=== PATIENT | female | born 1930 | race Caucasian/White ===

== ENCOUNTER 2016-05-15 13:48 | Outpatient (CLI) | payer MEDICARE, OTHER ==
--- NOTE | 2016-05-18 09:05 | OP Clinic Progress Note ---
REFERRING PHYSICIAN: Dr. Halley Sandhu REASON FOR VISIT: Katarina Carter returns for follow up of her seropositive rheumatoid arthritis of multiple joints. She is doing well. She is not having any joint swelling, warmth, tenderness, morning stiffness or pain. She has carpal tunnel in her right hand. She did increase her prednisone for a month due to some worsening symptoms. She continues to wear her brace at night and is not having many symptoms. 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 She has had no flares and continues on allopurinol. PAST MEDICAL HISTORY: 1. Seropositive rheumatoid arthritis of multiple joints. 2. 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 3. Osteoporosis. 4. Asthma. 5. Cataracts. 6. Bilateral knee replacements. 7. Hysterectomy. PRESENT MEDICATIONS: 1. Calcium plus D. 2. Plaquenil 200 mg once a day. 3. Diltiazem 120 mg daily. 4. Allopurinol 100 mg daily. ALLERGIES: She has no known drug allergies. REVIEW OF SYSTEMS: No fevers, chills, sweats, chest pain, shortness of breath, cough, wheezing, nausea, vomiting, or diarrhea. She also suffers from osteoporosis and she has not been taking her Fosamax. PHYSICAL EXAMINATION: VITAL SIGNS: Weight: 133. T: 97.1, R: 12, heart rate of 71, BP: 140/80. HEENT: Grossly unremarkable. LUNGS: Clear. HEART: Regular rate and rhythm. ABDOMEN: Soft. VASCULAR: No edema or cyanosis. PERIPHERAL JOINTS: No synovitis at the DIPs, PIPs, MCPs, wrists, elbows, shoulders, hips, knees, ankles, and feet. She does have some hard bony swelling of the DIPs. There is some CMC squaring. Tmr Teacher strength is intact. Gait is intact. IMPRESSION: 1. Seropositive rheumatoid arthritis of multiple joints. Doing well on Plaquenil alone. 2. Right-sided carpal tunnel, improved. 3. Osteoporosis. I have encouraged her to take her Fosamax 70 mg weekly as prescribed. 4. Hypertension. She is normotensive. PLAN: I will see her back in 6 months. Thank you very much. cc: Dr. Halley Sandhu [facility]
== END 2016-05-15 13:50 ==
LOC: RHEU 13:48
PROVIDERS: ATTEND Internal Medicine
DX: M10.9 Gout, unspecified (principal); M81.0 Age-related osteoporosis without current pathological fracture
CPT/HCPCS: 99213

== ENCOUNTER 2016-11-13 09:52 | Outpatient (CLI) | payer MEDICARE, OTHER ==
--- NOTE | 2016-11-16 10:18 | OP Clinic Progress Note ---
REASON FOR VISIT: Katarina Carter returns for follow up on seropositive rheumatoid arthritis. She is doing well with no significant joint swelling, warmth, tenderness, morning stiffness, or pain. No new deformities. She continues to have symptoms of carpal tunnel in the right hand occasionally and it is mainly at night. 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 PAST MEDICAL HISTORY: As above, as well as: 1. Osteoporosis. 2. Asthma. 3. Cataracts. 4. Bilateral knee replacements. 5. Hysterectomy. PRESENT MEDICATIONS: 1. Plaquenil 200 mg once a day. 2. Diltiazem 120 mg daily. 3. Allopurinol 100 mg daily. 4. Fosamax 70 mg once a week. 5. Calcium plus D. ALLERGIES: She has no known drug allergies. REVIEW OF SYSTEMS: No fevers, chills, sweats, chest pain, shortness of breath, cough, wheezing, nausea, vomiting, or diarrhea. PHYSICAL EXAMINATION: GENERAL: On exam, she looks well. VITAL SIGNS: Vital signs are stable. HEENT: Sclerae are anicteric. Conjunctivae are pink. No stomatitis or glossitis. LUNGS: Clear. HEART: Regular rhythm. ABDOMEN: Soft. VASCULAR: No edema or cyanosis. PERIPHERAL JOINTS: No synovitis. Tinel's testing on the right was negative. IMPRESSION: 1. Seropositive rheumatid arthritis. 2. Carpal tunnel syndrome. 3. Tophaceous gout. 4. Osteoporosis. PLAN: 1. We will check a uric acid level today, as well as a sedimentation rate. I will give her a call with the results when I can obtain them. 2. I will see her back in 6 months. Thank you very much. Best regards, cc: Dr. Halley ANDRES
== END 2016-11-13 09:53 ==
LOC: RHEU 09:52
PROVIDERS: ATTEND Internal Medicine
DX: M05.9 Rheumatoid arthritis with rheumatoid factor, unspecified (principal); G56.00 Carpal tunnel syndrome, unspecified upper limb; M10.9 Gout, unspecified; M81.0 Age-related osteoporosis without current pathological fracture
CPT/HCPCS: G0463

== ENCOUNTER 2017-05-04 12:16 | Outpatient (CLI) | payer MEDICARE, OTHER | END 2017-05-04 12:17 | LOC: LAB 12:16 | PROVIDERS: ATTEND Internal Medicine | DX: M05.79 Rheumatoid arthritis with rheumatoid factor of multiple sites without organ or systems involvement (principal) | CPT/HCPCS: 36415; 84550; 85651 ==

== ENCOUNTER 2017-07-09 10:28 | Outpatient (CLI) | payer MEDICARE, OTHER ==
--- NOTE | 2017-07-14 13:47 | OP Clinic Progress Note ---
REASON FOR VISIT: Katarina Carter returns for follow up of seropositive rheumatoid arthritis of multiple sites. This is a lady I first met in May of 2014 and she has done quite well on Plaquenil and prednisone. She presented with wrist pain and evidence of carpal tunnel syndrome. Presently, for the past few months, she has had worsening pain in the right hand with numbness and tingling and it is keeping her up all night. The other issue is osteoporosis. She had a T-score of minus 2.7 back in 2014. I had instituted Fosamax which she took for a while with no great difficulty. She apparently has stopped it and she does not recall when. She also has a history of tophaceous gout and has done well on Allopurinol with no recurrence of her symptoms. Since I last saw her, she fell and had a pelvic fracture. PAST MEDICAL HISTORY: 1. Osteoporosis. 2. Asthma. 3. Cataracts. 4. Bilateral knee replacements. 5. Hysterectomy. PRESENT MEDICATIONS: 1. Plaquenil 200 mg once a day. 2. Diltiazem 120 mg daily. 3. Allopurinol 100 mg daily. 4. Calcium plus D. ALLERGIES: She has no known drug allergies. REVIEW OF SYSTEMS: Rest of systems reviewed, no fevers, chills, sweats, chest pain, shortness of breath, cough, wheezing, nausea, vomiting, or diarrhea. PHYSICAL EXAMINATION: VITAL SIGNS: Weight: 125 pounds. Height: 5 feet 3 inches. T: 96.6, R: 20, heart rate 63, BP: 150/75. HEENT: Sclerae are anicteric. Conjunctivae are pink. No stomatitis or glossitis. LUNGS: Clear bilaterally with no crackles or wheezing. HEART: Regular rhythm. ABDOMEN: Soft and nontender. VASCULAR: Shows no edema or cyanosis. PERIPHERAL JOINTS: No synovitis at the DIPs, PIPs, MCPs, wrists, elbows, shoulders, hips, knees, ankles, and feet. She does have positive Tinel on the right with some tenderness at the right wrist and a positive Phalen sign. IMPRESSION: 1. Seropositive rheumatoid arthritis, worse. 2. Carpal tunnel syndrome, moderate to severe, right wrist. 3. Osteoporosis with history of pelvic fracture. PLAN: 1. I am bumping the patient's prednisone up to 5 mg twice a day. 2. We will check her labs for disease activity. 3. I would like to see her back in 4 weeks. At that time, we will also discuss the possibility of methotrexate depending on her response, as well as repeat a bone density study, and resumption of the patient's Fosamax, which I would like for her to take for at least another 2 years. Thank you very much. cc: Dr. Halley ANDRES
== END 2017-07-09 13:24 ==
LOC: RHEU 10:28
PROVIDERS: ATTEND Internal Medicine
DX: M06.9 Rheumatoid arthritis, unspecified (principal); G56.01 Carpal tunnel syndrome, right upper limb; M81.0 Age-related osteoporosis without current pathological fracture; Z87.81 Personal history of (healed) traumatic fracture
CPT/HCPCS: 99214; G0463

== ENCOUNTER 2017-08-13 12:42 | Outpatient (CLI) | payer MEDICARE, OTHER ==
--- NOTE | 2017-08-16 15:38 | OP Clinic Progress Note ---
REASON FOR VISIT: Katarina Carter returns for follow up of seropositive rheumatoid arthritis of multiple sites. She is doing well on prednisone 5 mg twice a day. She has no wrist pain. No swelling. No morning stiffness and the numbness and tingling in her hands has resolved. She has had no gout attacks. Note, her last uric acid was 5.7 on May 04 and her sedimentation rate was 8 on May 04. PAST MEDICAL HISTORY: 1. Osteoporosis. 2. Asthma. 3. Cataracts. 4. Bilateral knee replacements. 5. Hysterectomy. 6. Pelvic fracture. PRESENT MEDICATIONS: 1. Plaquenil 200 mg once a day. 2. Prednisone 5 mg twice a day. 3. Diltiazem 120 mg daily. 4. Allopurinol 100 mg daily. 5. Calcium plus D. ALLERGIES: She has no known drug allergies. REVIEW OF SYSTEMS: Rest of the systems reviewed, no fevers, chills, sweats, chest pain, shortness of breath, cough, wheezing, nausea, vomiting, or diarrhea and no falls. PHYSICAL EXAMINATION: VITAL SIGNS: Height: 5 feet 3 inches. Weight: 126. T: 97.3, R: 20, heart rate 60, BP: 160/80. HEENT: Sclerae are anicteric. Conjunctivae are pink. No stomatitis or glossitis. LUNGS: Clear. HEART: Regular rate and rhythm. ABDOMEN: Soft and nontender. VASCULAR: No edema or cyanosis. PERIPHERAL JOINTS: Hard bony swelling at the DIPs and PIPs, otherwise, no synovitis at the MCPs and wrists. Phalen testing is negative. Elbows, shoulders, hips, knees, ankles, and feet are unremarkable. Thoracic kyphosis is noted. No spinal tenderness. IMPRESSION: 1. Seropositive rheumatoid arthritis, steroid dependent. 2. Carpal tunnel syndrome secondary to above, resolved. 3. Osteoporosis. PLAN: 1. I am starting the patient on methotrexate 3 tablets weekly with folic acid supplementation. 2. We will repeat a bone density test today. Note: She had not been taking her Fosamax. Thank you very much. cc: Dr. Halley ANDRES
== END 2017-08-13 14:54 ==
LOC: RHEU 12:42
PROVIDERS: ATTEND Internal Medicine
DX: M06.9 Rheumatoid arthritis, unspecified (principal); G56.00 Carpal tunnel syndrome, unspecified upper limb; M81.0 Age-related osteoporosis without current pathological fracture
CPT/HCPCS: 99214; G0463

== ENCOUNTER 2017-08-18 10:28 | Outpatient (CLI) | payer MEDICARE, OTHER | END 2017-08-18 10:30 | LOC: RAD 10:28 | PROVIDERS: ATTEND Internal Medicine | DX: M81.0 Age-related osteoporosis without current pathological fracture (principal) | CPT/HCPCS: 77080 ==

== ENCOUNTER 2017-09-10 13:26 | Outpatient (CLI) | payer MEDICARE, OTHER ==
--- NOTE | 2017-09-13 13:29 | OP Clinic Progress Note ---
HISTORY OF PRESENT ILLNESS: Katarina Carter returns for follow up on her seropositive rheumatoid arthritis. She has been living on prednisone 5 mg twice a day, so we instituted methotrexate 3 tablets weekly at her last visit. She has tolerated it well. She has had no fevers, chills, sweats, mouth sores, chest pain, shortness of breath, cough, wheezing, nausea, vomiting, diarrhea, or skin rashes. PAST MEDICAL HISTORY: 1. Osteoporosis, status post pelvic fracture. 2. Asthma. 3. Cataracts. 4. Bilateral knee replacements. 5. Hysterectomy. PRESENT MEDICATIONS: 1. Plaquenil 200 mg once a day. 2. Prednisone 5 mg twice a day. 3. Methotrexate 3 tablets weekly. 4. Folic acid 1 mg daily. 5. Diltiazem 120 mg daily. 6. Allopurinol 100 mg daily. 7. Calcium plus D. ALLERGIES: She has no known drug allergies. REVIEW OF SYSTEMS: Per HPI. PHYSICAL EXAMINATION: VITAL SIGNS: Height: 5 feet 3 inches. Weight: 127. T: 97.8, R: 18, heart rate 68, BP: 150/90. HEENT: Sclerae are anicteric. Conjunctivae are pink. No stomatitis or glossitis. LUNGS: Clear bilaterally with no crackles or wheezing. HEART: Regular rate and rhythm. ABDOMEN: Soft and nontender. VASCULAR: No edema or cyanosis. PERIPHERAL JOINTS: No synovitis at the DIPs, PIPs, MCPs, wrists, elbows, shoulders, hips, knees, ankles, and feet. DIAGNOSTIC STUDIES: I reviewed her bone density study. Although she averages out at minus 2.2, right femoral neck T-score was minus 2.8. She has a history of a pelvic fracture. IMPRESSION: 1. Seropositive rheumatoid arthritis, active. 2. Osteoporosis. PLAN: 1. She is going to try to taper off her prednisone. 2. I am going to bump up her methotrexate to 6 tablets weekly. 3. Continue folic acid. 4. At her next visit, I will institute Fosamax 70 mg weekly. 5. We discussed fall precautions. Thank you very much. Best regards, cc: Dr. Halley Sandhu [facility]
== END 2017-09-10 14:10 ==
LOC: RHEU 13:26
PROVIDERS: ATTEND Internal Medicine
DX: M05.9 Rheumatoid arthritis with rheumatoid factor, unspecified (principal); M81.0 Age-related osteoporosis without current pathological fracture
CPT/HCPCS: 99214; G0463

== ENCOUNTER 2017-09-15 10:16 | Outpatient (CLI) | payer MEDICARE, OTHER ==
[2017-09-15 10:44] LABS: BASOPHILS % 0.3 (0.0-1.5); EOSINOPHILS % 3.2 % (0.0-6.8); MEAN CORPUSCULAR VOLUME 97.7 fl (80.0-100.0); MONOCYTES % 5.5 % (0.0-11.0); NEUTROPHILS # 3.8 # k/uL (1.4-7.7)
[2017-09-15 11:10] LABS: eGFR (African) > 60; eGFR (Non-African) > 60
== END 2017-09-15 13:18 ==
LOC: LAB 10:16
PROVIDERS: ATTEND Internal Medicine
DX: M05.79 Rheumatoid arthritis with rheumatoid factor of multiple sites without organ or systems involvement (principal); Z79.899 Other long term (current) drug therapy
CPT/HCPCS: 36415; 80053; 85025; 85651

== ENCOUNTER 2017-11-12 11:38 | Outpatient (CLI) | payer MEDICARE, OTHER ==
--- NOTE | 2017-11-15 13:30 | OP Clinic Progress Note ---
REASON FOR VISIT: Katarina Carter returns for follow up of seropositive rheumatoid arthritis of multiple sites. She is doing well from a joint point of view. She is presently having no significant joint swelling, warmth, tenderness, or morning stiffness. She has some pain in her knees with walking, which is attributable to her osteoarthritis. She has also noted that her right hand falls asleep at night at times. Her chief complaint is fatigue. She is now taking multiple naps throughout the day. PAST MEDICAL HISTORY: 1. Seropositive rheumatoid arthritis. 2. Osteoporosis, status post pelvic fracture. 3. Asthma. 4. Cataracts. 5. Bilateral knee replacements. 6. Hysterectomy. PRESENT MEDICATIONS: 1. Plaquenil 200 mg once a day. 2. Prednisone 5 mg once a day. 3. Methotrexate 6 tablets weekly. 4. Folic acid 1 mg daily. 5. Diltiazem 100 mg daily. 6. Allopurinol 100 mg daily. 7. Calcium plus D. ALLERGIES: She has no known drug allergies. REVIEW OF SYSTEMS: She has had no fevers, chills, sweats. No mouth sores but she has a loss of appetite. Things just do not taste good. She has had no chest pain, shortness of breath. No nausea, vomiting, or diarrhea. No dark stools or bloody stools. She has numbness and tingling of her right upper extremity at night. No skin rashes or nodules. PHYSICAL EXAMINATION: VITAL SIGNS: Height: 5 feet 3 inches. Weight: 126 pounds, down 1 pound since her last visit at 127. T: 97.9, R: 20, heart rate 75, BP: 127/69. HEENT: Sclerae are anicteric. Conjunctivae are pink. No stomatitis or glossitis. LUNGS: Clear bilaterally with no crackles or wheezing. HEART: Regular rate and rhythm. ABDOMEN: Soft and nontender. VASCULAR: No edema or cyanosis. PERIPHERAL JOINTS: No synovitis at the DIPs, PIPs, MCPs, wrists, elbows, shoulders, hips, knees, ankles, and feet. She does have a little ulnar deviation at the MCPs and some changes of osteoarthritis at the DIPs and PIPs. LABORATORY: Calcium was slightly elevated at 10.9. We will continue to monitor at her next visit. Her last sedimentation rate was 10. IMPRESSION: 1. Seropositive rheumatoid arthritis, improved. 2. Osteoporosis. 3. Fatigue. 4. For what appears to be carpal tunnel on the right side, I suggested a wrist splint at night. PLAN: 1. We will check her labs for disease activity and drug toxicity prior to her next visit in 2 months. 2. I am instituting Fosamax 70 mg weekly. 3. I made some recommendations on sleep hygiene. Thank you very much. cc: Dr. Halley ANDRES
== END 2017-11-12 12:31 ==
LOC: RHEU 11:38
PROVIDERS: ATTEND Internal Medicine
DX: M05.9 Rheumatoid arthritis with rheumatoid factor, unspecified (principal); M81.0 Age-related osteoporosis without current pathological fracture; R53.83 Other fatigue; R20.2 Paresthesia of skin
CPT/HCPCS: 99214; G0463

== ENCOUNTER 2017-11-25 13:51 | Outpatient (CLI) | payer MEDICARE, OTHER ==
[2017-11-25 14:27] LABS: BASOPHILS % 0.3 (0.0-1.5); EOSINOPHILS % 1.6 % (0.0-6.8); MEAN CORPUSCULAR HEMOGLOBIN 32.5 pg (28.0-34.0); MEAN CORPUSCULAR VOLUME 99.9 fl (80.0-100.0); MONOCYTES % 3.9 % (0.0-11.0); NEUTROPHILS # 5.1 # k/uL (1.4-7.7)
[2017-11-25 14:48] LABS: eGFR (African) > 60; eGFR (Non-African) > 60
== END 2017-11-25 13:52 ==
LOC: LAB 13:51
PROVIDERS: ATTEND Internal Medicine
DX: M05.79 Rheumatoid arthritis with rheumatoid factor of multiple sites without organ or systems involvement (principal)
CPT/HCPCS: 36415; 80053; 85025; 85651; 86140

== ENCOUNTER 2018-01-14 12:16 | Outpatient (CLI) | payer MEDICARE, OTHER ==
--- NOTE | 2018-01-17 10:19 | OP Clinic Progress Note ---
REASON FOR VISIT: Katarina Carter returns for follow up of seropositive rheumatoid arthritis of multiple sites. She is doing well. She has no joint swelling, warmth, tenderness, morning stiffness, or pain. Today, she has a little left knuckle pain but that is where her cat scratched her. Fatigue is still an issue but unchanged. She has put back a little weight. PAST MEDICAL HISTORY: 1. Seropositive rheumatoid arthritis. 2. Osteoporosis, status post pelvic fracture. 3. Asthma. 4. Cataracts. 5. Bilateral knee replacements. 6. Hysterectomy. PRESENT MEDICATIONS: 1. Methotrexate 6 tablets weekly. 2. Folic acid 1 mg daily. 3. Diltiazem 100 mg daily. 4. Alendronate 70 mg weekly. MEDICATIONS RECENTLY STOPPED: 1. Plaquenil. 2. Prednisone. ALLERGIES: She has no known drug allergies. REVIEW OF SYSTEMS: No fevers, chills, sweats, chest pain, shortness of breath, cough, wheezing, nausea, vomiting, or diarrhea. PHYSICAL EXAMINATION: VITAL SIGNS: Height: 5 feet 3 inches. Weight: 127 pounds. T: 97.6, R: 20, heart rate 73, BP: 145/77. HEENT: Sclerae are anicteric. Conjunctivae are pink. No stomatitis or glossitis. LUNGS: Clear with no crackles or wheezing. HEART: Regular rate and rhythm. ABDOMEN: Soft and nontender. VASCULAR: No edema or cyanosis. PERIPHERAL JOINTS: No synovitis at the DIPs, PIPs, MCPs, wrists, elbows, shoulders, hips, knees, ankles, and feet. LABORATORY: Her last sedimentation rate was 9. White blood cell count 6.2, hemoglobin 12.3. AST and ALT were 22 and 48, respectively. Creatinine was 1.1. Calcium 10.4. IMPRESSION: Seropositive rheumatoid arthritis of multiple sites, doing well. Osteoporosis with history of a fracture. PLAN: 1. Continue Fosamax. 2. Decreased calcium to 1 a day. 3. We will continue to monitor her serum calcium. 4. I will see her back in February. No need for labs today. Thank you very much. cc: Dr. Halley ANDRES
== END 2018-01-14 12:17 ==
LOC: RHEU 12:16
PROVIDERS: ATTEND Internal Medicine
DX: M05.9 Rheumatoid arthritis with rheumatoid factor, unspecified (principal); M81.0 Age-related osteoporosis without current pathological fracture
CPT/HCPCS: 99214; G0463

== ENCOUNTER 2018-03-11 11:18 | Outpatient (CLI) | payer MEDICARE, OTHER ==
--- NOTE | 2018-03-14 13:11 | OP Clinic Progress Note ---
REASON FOR VISIT: Katarina Carter returns for follow up of seropositive rheumatoid arthritis of multiple sites. Previously tried and failed Plaquenil. Presently, she is doing quite well on methotrexate 6 tablets weekly; however, we had tried to stop her prednisone and about 3 weeks ago, she needed to resume it for pain and swelling in her right hand. The present pain is maybe 2/10. Morning stiffness is less than 15 minutes. She has had no new medical problems. Osteoporosis, she has tolerated alendronate with no heartburn or dyspepsia. Fatigue remains but not an issue at this time. PAST MEDICAL HISTORY: 1. Seropositive rheumatoid arthritis. 2. Osteoporosis, status post pelvic fracture. 3. Asthma. 4. Cataracts. 5. Hypertension. 6. Bilateral knee replacements. 7. Hysterectomy. PRESENT MEDICATIONS: 1. Methotrexate 6 tablets weekly. 2. Folic acid 1 mg daily. 3. Prednisone 5 mg daily. 4. Alendronate 70 mg weekly. 5. Diltazem 100 mg daily. ALLERGIES: She has no drug allergies. REVIEW OF SYSTEMS: No change in her weight. No fevers or chills. No mouth sores. No dry eyes or dry mouth. No chest pain, shortness of breath, cough, wheezing, nausea, vomiting, or diarrhea. No numbness or tingling of her extremities. No falls. PHYSICAL EXAMINATION: VITAL SIGNS: BP: Weight: 123. 140/80, P: 71, R: 16, T: 97.2. HEENT: Sclerae are anicteric. Conjunctivae are pink. No stomatitis or glossitis. LUNGS: Clear bilaterally with no crackles or wheezing. HEART: Regular rate and rhythm. Normal S1 and S2. ABDOMEN: Soft and nontender. VASCULAR: No edema or cyanosis. PERIPHERAL JOINTS: OA changes at the DIPs and PIPs. A little ulnar deviation at the MCPs but no synovitis at the MCPs, wrists, elbows, shoulders, hips, knees, ankles, and feet. Oak [employer] strength is well maintained at 5/5. IMPRESSION: 1. Seropositive rheumatoid arthritis, active. Stable. 2. High risk drug. No evidence of toxicity. 3. Osteoporosis, tolerating Fosamax. 4. Mild renal insufficiency with a creatinine of 1.1 on labs of November 25. 5. Mild hypercalcemia with a calcium of 10.4 on November 25. PLAN: We will continue to monitor, otherwise, last ALT and AST were normal at 48 and 22, respectively. Hemoglobin 12.3, white count is 6.2, platelets 327,000. Thank you very much. cc: Dr. Halley ANDRES
== END 2018-03-11 11:23 | disposition home or self-care (01) ==
LOC: RHEU 11:18
PROVIDERS: ATTEND Internal Medicine
DX: M05.89 Other rheumatoid arthritis with rheumatoid factor of multiple sites (principal); M81.0 Age-related osteoporosis without current pathological fracture; N28.9 Disorder of kidney and ureter, unspecified; E83.52 Hypercalcemia
CPT/HCPCS: 99213; G0463

== ENCOUNTER 2018-03-15 09:52 | Outpatient (CLI) | payer MEDICARE, OTHER ==
[2018-03-15 10:23] LABS: MEAN CORPUSCULAR HEMOGLOBIN 31.4 pg (28.0-34.0)
[2018-03-15 10:24] LABS: BASOPHILS % 0.3 (0.0-1.5); EOSINOPHILS % 2.7 % (0.0-6.8); MONOCYTES % 6.3 % (0.0-11.0); NEUTROPHILS # 4.5 # k/uL (1.4-7.7)
[2018-03-15 10:53] LABS: eGFR (Non-African) > 60
== END 2018-03-15 09:53 ==
LOC: LAB 09:52
PROVIDERS: ATTEND Internal Medicine
DX: M05.79 Rheumatoid arthritis with rheumatoid factor of multiple sites without organ or systems involvement (principal); Z79.899 Other long term (current) drug therapy
CPT/HCPCS: 36415; 80053; 85025; 85651

== ENCOUNTER 2018-10-05 13:09 | Outpatient (CLI) | payer MEDICARE, OTHER ==
[~2018-10-05 13:09] MED LIST: DENOSUMAB (NF) 60 MG/ML SYRINGE SQ ONE
== END 2018-10-05 13:53 ==
LOC: INF 13:09
PROVIDERS: ATTEND Internal Medicine Rheumatology
DX: M81.0 Age-related osteoporosis without current pathological fracture (principal); Z87.310 Personal history of (healed) osteoporosis fracture
CPT/HCPCS: J0897

== ENCOUNTER 2019-04-07 11:33 | Outpatient (CLI) | payer MEDICARE, OTHER ==
[2019-04-07] MEDS ORDERED: DENOSUMAB (NF) 60 MG/ML SYRINGE SQ ONE (13:00)
== END 2019-04-07 11:52 | disposition home or self-care (01) ==
LOC: INF 11:33
PROVIDERS: ATTEND Internal Medicine Rheumatology
DX: M81.0 Age-related osteoporosis without current pathological fracture (principal); Z87.310 Personal history of (healed) osteoporosis fracture
CPT/HCPCS: J0897